=== PATIENT | female | born 1985 | race Caucasian/White ===

== ENCOUNTER 2018-01-03 12:03 | Day surgery (SDC) | payer BC ==
[2018-01-03 12:16] VITALS: BMI 34.3
[2018-01-03 12:41] LABS: #Eosinphils 0.1 thou/uL (0.0-0.7); #Lymphocytes 1.6 thou/uL (1.20-3.40); #Monocytes 0.7 thou/uL (0.11-0.59); #Neutrophils 9.1 thou/uL (1.40-6.50); %Basophils 0.2 % (0.0-1.0); %Eosinophils 1.1 % (0.0-10.0); %Lymphocytes 14.1 % (21.0-51.0); %Monocytes 5.8 % (0.0-10.0); %Neutrophils 78.8 % (42.0-75.0); Hemoglobin 12.8 g/dL (12.0-16.0); Mean Corpuscular HGB CONC 32.9 g/dL (32.0-36.0); Mean Corpuscular Hemoglobin 28.5 pg (27.0-31.0); Mean Corpuscular Volume 86.7 fl (81.0-99.0); Mean Platelet Volume 8.9 fL (7.4-10.4); Platelet Count 208 thou/uL (130-400); RBC Distribution Width 13.1 % (11.5-14.5); White Blood Cell (WBC) Count 11.6 thou/uL (4.8-10.8)
[2018-01-03 13:02] LABS: ALT (SGPT) 10 U/L (8-55); AST (SGOT) 16 U/L (5-34); Albumin 3.1 g/dL (3.5-5.0); Alkaline Phosphatase 271 U/L (40-150); Anion Gap 13 mmol/L (10-20); BUN (Urea Nitrogen) 8 mg/dL (7.0-18.7); Bilirubin, Total 0.2 mg/dL (0.2-1.2); Calc. Creatinine Clearance 159 mL/min (70-130); Calcium 9.3 mg/dL (7.8-10.44); Carbon Dioxide 23 mmol/L (22-29); Chloride 104 mmol/L (98-107); Estimated GFR-MDRD Greater than 90; Globulin 3.2 g/dL (2.4-3.5); Glucose 155 mg/dL (70-105); Potassium 3.9 mmol/L (3.5-5.1); Protein, Total 6.3 g/dL (6.0-8.3); Sodium 136 mmol/L (136-145)
== END 2018-01-03 13:49 ==
LOC: L&D/OP 12:03
PROVIDERS: ATTEND Student in an Organized Health Care Education/Training Program
DX: O13.9 Gestational [pregnancy-induced] hypertension without significant proteinuria, unspecified trimester (principal); O36.8190 Decreased fetal movements, unspecified trimester, not applicable or unspecified; O99.89 Other specified diseases and conditions complicating pregnancy, childbirth and the puerperium; R10.11 Right upper quadrant pain; Z3A.00 Weeks of gestation of pregnancy not specified
CPT/HCPCS: 36415; 80053; 85025; 99283

== ENCOUNTER 2018-01-13 08:35 | Inpatient (IN) | payer BC ==
[2018-01-13 20:34] VITALS: BMI 36.0
[2018-01-13] MEDS ORDERED: HYDROcodone/Acetaminophen 5/325 mg Tablet PO PRN (20:40)
[2018-01-13] MEDS ORDERED: Diphenoxylate HCl/Atropine Tablet PO PRN (20:40)
[2018-01-13] MEDS ORDERED: Ondansetron HCl/PF 4 MG/2 ML Vial IVP PRN (20:40)
[2018-01-13] MEDS ORDERED: Promethazine HCl 25 MG/ML VIAL IM PRN (20:40)
[2018-01-13] MEDS ORDERED: Lidocaine 1% (PF) 30 ML VIAL SC PRN (20:40)
[2018-01-13] MEDS ORDERED: LR / Pitocin 40 units/1000 ml 1,000 ML IV PRN (20:40)
[2018-01-13] MEDS ORDERED: Ibuprofen 800 MG TAB PO PRN (20:40)
[2018-01-13] MEDS ORDERED: Acetaminophen 500 MG TAB PO PRN (20:40)
[2018-01-13] MEDS ORDERED: Carboprost 250 MCG/ML AMP IM PRN (20:40)
[2018-01-13] MEDS ORDERED: Misoprostol 200 MCG TAB PR PRN (20:40)
[2018-01-13] MEDS: Lactated Ringer's 1,000 ML IV SCH (20:45)
[2018-01-13] MEDS ORDERED: LR 500 ML/Oxytocin 10 units 500 ML IV SCH (20:45)
[2018-01-13] MEDS: Misoprostol 100 MCG TAB VAG SCH (21:28)
[2018-01-13 21:38] LABS: Hemoglobin 12.7 g/dL (12.0-16.0); Mean Corpuscular HGB CONC 33.8 g/dL (32.0-36.0); Mean Corpuscular Hemoglobin 29.1 pg (27.0-31.0); Mean Corpuscular Volume 85.9 fl (81.0-99.0); Mean Platelet Volume 9.4 fL (7.4-10.4); Platelet Count 234 thou/uL (130-400); RBC Distribution Width 13.3 % (11.5-14.5); Red Blood Cell (RBC) Count 4.37 mill/uL (4.20-5.40); White Blood Cell (WBC) Count 11.4 thou/uL (4.8-10.8)
[2018-01-13 22:19] LABS: Syphilis Antibody Nonreactive (Nonreactive); Syphilis Antibody Index 0.05 S/CO (<1.00 Non-Reactive)
[2018-01-13 23:04] LABS: HBSAg Index 0.17 S/CO (0-0.99); Hep B Surf Ag Non-Reactive S/CO (NonReactive)
[2018-01-14] MEDS: Misoprostol 100 MCG TAB VAG SCH (00:43)
[2018-01-14] MEDS: Lactated Ringer's 1,000 ML IV SCH ×2 (07:30→17:30)
[2018-01-14] MEDS ORDERED: DISCONTINUE ALL PREVIOUS NARCOTICS FS SCH (08:30)
[2018-01-14] MEDS: Bupivacaine 0.5% 20 ML, Fentanyl 400 MCG in Sodium Chloride 0.9% 72 ML EPIDURAL SCH ×2 (09:25→16:05)
[2018-01-14] MEDS ORDERED: Ketorolac Tromethamine 30 MG/ML VIAL ONE ×2 (11:24→21:33)
[2018-01-14] MEDS ORDERED: Lidocaine 2% MPF 10 ML AMP (For Epidural Use) ONE (11:24)
[2018-01-14] MEDS ORDERED: Ondansetron HCl/PF 4 MG/2 ML Vial ONE ×2 (11:24→20:00)
[2018-01-14 12:52] LABS: ALT (SGPT) 11 U/L (8-55); AST (SGOT) 18 U/L (5-34); Alkaline Phosphatase 309 U/L (40-150); Anion Gap 12 mmol/L (10-20); BUN (Urea Nitrogen) 7 mg/dL (7.0-18.7); Bilirubin, Total 0.3 mg/dL (0.2-1.2); Calc. Creatinine Clearance 167 mL/min (70-130); Calcium 9.2 mg/dL (7.8-10.44); Carbon Dioxide 21 mmol/L (22-29); Chloride 107 mmol/L (98-107); Estimated GFR-MDRD Greater than 90; Globulin 2.9 g/dL (2.4-3.5); Glucose 100 mg/dL (70-105); Potassium 4.6 mmol/L (3.5-5.1); Protein, Total 5.9 g/dL (6.0-8.3); Sodium 135 mmol/L (136-145)
[2018-01-14] MEDS: Dextrose 5%-Lactated Ringers 1,000 ML IV SCH (13:00)
[2018-01-14] MEDS ORDERED: Acetaminophen 325 MG TAB PO PRN (13:17)
[2018-01-14] MEDS ORDERED: ePHEDrine/0.9% NaCl/PF SYRINGE 50 mg/10 ml SLOW IVP PRN (13:17)
[2018-01-14] MEDS ORDERED: Eucerin (Mineral Oil/Petrolatum,White) 30 gm Jar TOP PRN ×2 (13:17→20:39)
[2018-01-14] MEDS ORDERED: Promethazine HCl 25 MG/ML VIAL IM PRN ×2 (13:17→20:39)
[2018-01-14] MEDS ORDERED: Ondansetron HCl/PF 4 MG/2 ML Vial IVP PRN ×3 (13:17→20:39)
[2018-01-14] MEDS ORDERED: diphenhydrAMINE 50 MG/ML VIAL IVP PRN ×2 (13:17→20:39)
[2018-01-14] MEDS ORDERED: Naloxone HCl 0.4 mg/ml Vial IVP PRN ×4 (13:17→20:39)
[2018-01-14] MEDS ORDERED: Lactated Ringer's 500 ML IV PRN (13:17)
--- NOTE | 2018-01-14 13:17 | PDOC.LDHP ---
Labor and Delivery H&P Chief complaint: scheduled induction HPI: 32yo at 39wk for IOL due to GHTN. No PIH sx. Recieved 2 doses cytotec overnight, contraction pain 2/10 this am. Current gestational age (weeks): 39 Due date: 01/16/18 Dating criteria: last menstrual period Grav: 2 Para: 0 OB History Details: h/o invasive mole first s/p MTX chemotherapy Current complications: none Abnormal US findings: No Past Medical History: Invasive mole Current medications: pre- vitamins, other (gabapentin 300 tid prn) Previous surgical history: other (d&c) Allergies/Adverse Reactions: Allergies Allergy/AdvReac Type Severity Reaction Status Date / Time No Known Allergies Allergy Verified 01/13/18 20:25 Social history: none - Physical Exam Vital signs reviewed and normal: yes General: NAD Heart: RRR Lungs: CTAB Abdomen: gravid Extremeties: no edema FHT: category 2, late decelerations (occasional) [place] contractions every: q2-3min - Vaginal Exam cm dilated: 6 Effacement: 90% Station: -1 (LOT, FSE placed at 1220) - OB Labs Blood type: O RH: negative Antibody Screen: negative HIV: negative RPR: negative HEPSAg: negative 1 hour GCT: negative GBS: negative Rubella: immune - Assessment L&D Assessment: medically indicated induction - Plan Plan: admit to L&D, labor augmentation if indicated, informed consent obtained, anesthesia consult for pain management, other (resucitation prn late decel or minimal variability)
[2018-01-14] MEDS ORDERED: Communication Order-Pharmacy FS SCH ×2 (13:30→20:45)
[2018-01-14] MEDS ORDERED: Fentanyl 4mcg/Marcaine 0.1% Cassette 100 ML EPIDURAL SCH (13:30)
--- NOTE | 2018-01-14 17:12 | PDOC.LDPN ---
Labor & Delivery Progress Note - Subjective Subjective: vaginal pressure - Objective Vital signs reviewed and normal: yes General: NAD Uterine fundus: non tender Dilation: 9 Effacement: 90% Station: 1+ FHT: category 1 [place] contractions every: q2min - Assessment (1) Term Code(s): Z34.80 - ENCOUNTER FOR SUPRVSN OF NORMAL , UNSP TRIMESTER Current Visit: Yes Status: Acute -: Continue pitocin augmentation, recheck SVE in 1hr. Low grade temp, monitor for chorio. BP mild- severe, no sx PIH, nl labs. Labatelol prn severe pressures.
[2018-01-14] MEDS ORDERED: CEFAZOLIN/Water 2 GM/20 ML SYRINGE ONE (19:35)
[2018-01-14] MEDS ORDERED: Bicitra 30 ML UDCUP ONE (19:35)
[2018-01-14] MEDS ORDERED: Bicitra 30 ML UDCUP PO SCH (19:45)
[2018-01-14] MEDS ORDERED: CEFAZOLIN/Water 2 GM/20 ML SYRINGE SLOW IVP SCH (19:45)
--- NOTE | 2018-01-14 19:46 | PDOC.LDPN ---
Labor & Delivery Progress Note - Subjective Subjective: comfortable - Objective Vital signs reviewed and normal: yes General: NAD Uterine fundus: non tender SVE: 9 Effacement: 90% Station: 1+ FHT: category 1 [place] contractions every: q2min - Assessment (1) Term Code(s): Z34.80 - ENCOUNTER FOR SUPRVSN OF NORMAL , UNSP TRIMESTER Current Visit: Yes Status: Acute -: Arrested at 9cm since 1529, dispo for PCS due to arrest of active phase. Disc risks benefits including risk of bleeding transfusion infection damage to surrounding structures and trauma. Pt understands and wishes to proceed. All questions answered. status reassuring at this time.
[2018-01-14] MEDS ORDERED: PHENYLEPHRINE-NS 100 MCG/ML 10 ML SYRINGE ONE (20:00)
[2018-01-14] MEDS ORDERED: Oxytocin 10 UNITS/ML VIAL ONE (20:00)
[2018-01-14] MEDS ORDERED: Morphine PF 1 MG/ML SYR ONE (20:01)
[2018-01-14] MEDS ORDERED: Lidocaine 2% 10 ML INJ ONE (20:04)
--- NOTE | 2018-01-14 20:09 | PDOC.OPDEL ---
OB Operative/Delivery Note Delivery Dr/Surgeon: Yamile Assist: Andria Pre-Delivery Diagnosis: arrest of dilation ( at 9cm) Procedure/Post Delivery Dx: primary low transverse CS Weeks gestation: 39 Anesthesia: epidural - Additional Findings/Plan Placenta delivered: spontaneous findings: low transverse hysterotomy with extension (2cm on left side) , normal uterus, normal tubes, normal ovaries Estimated blood loss: 1000 Post delivery plan: routine recovery
[2018-01-14] MEDS ORDERED: Fentanyl 100 MCG/2 ML VIAL ONE (20:32)
[2018-01-14] MEDS ORDERED: Promethazine HCl 25 MG SUPP PR PRN (20:39)
[2018-01-14] MEDS ORDERED: Meperidine HCl/PF 25 MG/ML VIAL SLOW IVP PRN (20:39)
[2018-01-14] MEDS ORDERED: Ketorolac Tromethamine 30 MG/ML VIAL IVP PRN (20:39)
[2018-01-14] MEDS ORDERED: Naloxone HCl 0.4 mg/ml Vial IV PRN (20:39)
[2018-01-14] MEDS ORDERED: HYDROmorphone 2 MG/ML VIAL SLOW IVP PRN (20:39)
[2018-01-14] MEDS ORDERED: Acetaminophen 1,000 MG in Premix Bag 1 BAG IVPB PRN (20:41)
[2018-01-14] MEDS ORDERED: Ketorolac Tromethamine 30 MG/ML VIAL IVP SCH (20:45)
[2018-01-14] MEDS ORDERED: Labetalol HCl 100 MG/20 ML VIAL SLOW IVP PRN (22:35)
[2018-01-15] MEDS ORDERED: Lanolin Ointment 7 GM TUBE TOP PRN (00:37)
[2018-01-15] MEDS ORDERED: HYDROcodone/Acetaminophen 5/325 mg Tablet PO PRN ×2 (00:37)
[2018-01-15] MEDS ORDERED: diphenhydrAMINE 25 MG CAP PO PRN (00:37)
[2018-01-15] MEDS ORDERED: Acetaminophen 325 MG TAB PO PRN (00:37)
[2018-01-15] MEDS ORDERED: Zolpidem Tartrate 5 MG TAB PO PRN (00:37)
[2018-01-15] MEDS ORDERED: Bisacodyl 10 MG SUPP PR PRN (00:37)
[2018-01-15] MEDS ORDERED: Ondansetron HCl/PF 4 MG/2 ML Vial IVP PRN (00:37)
[2018-01-15] MEDS ORDERED: Ferrous Sulfate 325 MG TAB PO SCH (01:00)
[2018-01-15] MEDS ORDERED: Docusate Calcium (SURFAK) 240 MG CAP PO SCH (01:00)
[2018-01-15 05:20] LABS: Mean Corpuscular HGB CONC 33.3 g/dL (32.0-36.0); Mean Corpuscular Hemoglobin 29.1 pg (27.0-31.0); Mean Corpuscular Volume 87.4 fl (81.0-99.0); Platelet Count 236 thou/uL (130-400); RBC Distribution Width 13.4 % (11.5-14.5); Red Blood Cell (RBC) Count 3.78 mill/uL (4.20-5.40)
[2018-01-15] MEDS ORDERED: Sodium Chloride 0.9% 10 ML ONE (07:36)
[2018-01-15] MEDS: Prenatal Vitamin 1 TAB PO SCH (08:15)
[2018-01-15] MEDS: Docusate Calcium (SURFAK) 240 MG CAP PO SCH ×2 (08:15→21:52)
[2018-01-15] MEDS: Ferrous Sulfate 325 MG TAB PO SCH ×2 (08:17→22:02)
--- NOTE | 2018-01-15 08:32 | PDOC.PP ---
Post Progress Note Post Day #: 1 Subjective: Overall doing well. Pain moderately controlled. No ambulated yet. Davis in place. PO intake tolerated: yes Flatus: no Ambulation: no Vital Signs (12 hours) Temp Pulse Resp BP BP Pulse Ox 01/15/18 07:51 99.2 F 94 20 135/79 01/15/18 03:45 98.8 F 94 20 01/15/18 03:00 98.8 F 91 20 130/71 01/15/18 01:50 98.8 F 91 20 123/74 01/15/18 01:30 98.4 F 90 20 128/72 01/15/18 00:52 98.6 F 98 18 131/73 01/15/18 00:37 98.8 F 91 20 123/74 01/14/18 23:55 97.8 F 100 18 97 01/14/18 20:41 97.8 F 100 18 150/85 H Weight Weight 210 lb - Physical Examination General: NAD Cardiovascular: no m/r/g, RRR Respiratory: clear to auscultation bilaterally, non-labored breathing Abdominal: + bowel sounds, no distention, appropriately TTP Fundus firm & at: below umbilicus; dressing c/d/i Extremities: negative homans (B) Neurological: no gross focal deficits Psychiatric: A&Ox3, normal affect Result Diagrams: 01/15/18 01:13 01/14/18 12:17 Additional Labs: Post Labs Blood Type O NEGATIVE 01/13/18 20:45 Hep Bs Antigen Non-Reactive S/CO (NonReactive) 01/13/18 20:45 (1) delivery delivered Code(s): O82 - ENCOUNTER FOR DELIVERY WITHOUT INDICATION Status: Acute (2) Arrest of dilation, delivered, current hospitalization Code(s): O62.1 - SECONDARY UTERINE INERTIA Status: Acute - Assessment/Plan PPD 1 Ambulate and remove davis today PRN pain meds. Noted leukocytosis above expected, no signs of infection currently, afebrile. Will monitor. Continue routine post /op care.
[2018-01-15] MEDS: Misoprostol 100 MCG TAB VAG SCH ×3 (08:36→08:38)
[2018-01-15] MEDS: Lactated Ringer's 1,000 ML IV SCH (08:38)
[2018-01-15] MEDS: Dextrose 5%-Lactated Ringers 1,000 ML IV SCH (08:38)
[2018-01-15] MEDS: HYDROcodone/Acetaminophen 5/325 mg Tablet PO PRN ×3 (10:49→23:52)
[2018-01-15] MEDS: Simethicone Chewable 80 MG TAB PO PRN ×2 (10:50→21:52)
--- NOTE | 2018-01-15 12:56 | ADD-OP ---
ADDENDUM DATE OF SERVICE: 01/14/2018 I was present and scrubbed to assist the primary low transverse with Dr. Maia Ovalle. Please see her note for full details.
[2018-01-15] MEDS: Ibuprofen 800 MG TAB PO SCH ×2 (15:18→23:52)
[2018-01-16] MEDS: HYDROcodone/Acetaminophen 5/325 mg Tablet PO PRN ×4 (04:53→18:53)
[2018-01-16] MEDS: Prenatal Vitamin 1 TAB PO SCH (09:27)
[2018-01-16] MEDS: Docusate Calcium (SURFAK) 240 MG CAP PO SCH ×2 (09:27→21:34)
[2018-01-16] MEDS: Ferrous Sulfate 325 MG TAB PO SCH ×2 (09:31→21:37)
--- NOTE | 2018-01-16 12:50 | PDOC.PP ---
Post Progress Note Post Day #: 2 PO intake tolerated: yes Flatus: yes Ambulation: yes Vital Signs (12 hours) Temp Pulse Resp BP BP 01/16/18 12:28 98.7 F 94 18 125/72 01/16/18 08:25 98.6 F 100 20 01/16/18 07:59 98.6 F 100 20 127/79 01/16/18 04:00 97.8 F 95 16 Weight Weight 210 lb - Physical Examination General: NAD Cardiovascular: RRR Respiratory: non-labored breathing Abdominal: no distention, appropriately TTP Extremities: negative homans (B) Skin: CS incision dry & intact Neurological: no gross focal deficits Psychiatric: normal affect Result Diagrams: 01/15/18 01:13 01/14/18 12:17 Additional Labs: Post Labs Blood Type O NEGATIVE 01/13/18 20:45 Hep Bs Antigen Non-Reactive S/CO (NonReactive) 01/13/18 20:45 (1) Term Code(s): Z34.80 - ENCOUNTER FOR SUPRVSN OF NORMAL , UNSP TRIMESTER Status: Acute - Assessment/Plan POD2 from PCS for AOAP VSSAF Doing well, met all milestones GHTN BP nl no sx PIH Rh neg s/p rhogam, RImm Home tomorrow, cont current care.
[2018-01-16] MEDS: Ibuprofen 800 MG TAB PO SCH ×2 (13:36→21:34)
[2018-01-17] MEDS: Ibuprofen 800 MG TAB PO SCH (05:55)
--- NOTE | 2018-01-17 07:56 | PDOC.PP ---
Post Progress Note Post Day #: 3 PO intake tolerated: yes Flatus: yes Ambulation: yes Vital Signs (12 hours) Temp Pulse Resp BP 01/16/18 20:00 98.9 F 94 16 130/71 Weight Weight 210 lb - Physical Examination Cardiovascular: RRR Respiratory: non-labored breathing Abdominal: no distention, appropriately TTP Fundus firm & at: umb-2 Skin: CS incision dry & intact Neurological: no gross focal deficits Psychiatric: normal affect Result Diagrams: 01/15/18 01:13 01/14/18 12:17 Additional Labs: Post Labs Blood Type O NEGATIVE 01/13/18 20:45 Hep Bs Antigen Non-Reactive S/CO (NonReactive) 01/13/18 20:45 (1) Term Code(s): Z34.80 - ENCOUNTER FOR SUPRVSN OF NORMAL , UNSP TRIMESTER Status: Acute - Assessment/Plan POD3 from PCS for AOAP VSSAF Doing well met all milestones Hgb wnl postop, cont PNV on DC Pain controlled on [place] and Ibuprofen BP wnl no sx PIH Rh neg s/p RHIG, RImm DC home fu 2 wk
[2018-01-17 08:15] VITALS: BP 137/68; TEMP 98.2
[2018-01-17] MEDS: Docusate Calcium (SURFAK) 240 MG CAP PO SCH (09:06)
[2018-01-17] MEDS: Prenatal Vitamin 1 TAB PO SCH (09:06)
[2018-01-17] MEDS: Ferrous Sulfate 325 MG TAB PO SCH (09:07)
== END 2018-01-17 12:25 | disposition home or self-care (01) | DRG 766 ==
LOC: L&D 19:48 → 3SW 01-15 00:04
PROVIDERS: ADMIT Student in an Organized Health Care Education/Training Program; ATTEND Student in an Organized Health Care Education/Training Program
PROC: 3E0P7VZ Introduction of Hormone into Female Reproductive, Via Natural or Artificial Opening (ICD-10-PCS; 2018-01-13)
PROC: 3E033VJ Introduction of Other Hormone into Peripheral Vein, Percutaneous Approach (ICD-10-PCS; 2018-01-13)
PROC: 10D00Z1 Extraction of Products of Conception, Low, Open Approach (ICD-10-PCS; principal; 2018-01-14)
DX: O13.4 Gestational [pregnancy-induced] hypertension without significant proteinuria, complicating childbirth; Z37.0 Single live birth; O62.1 Secondary uterine inertia; Z3A.39 39 weeks gestation of pregnancy
CPT/HCPCS: 36415; 51702; 80053; 85027; 85461; 86780; 86850; 86870; 86900; 86901; 86922; 87340; 88307; 90384; 96372; A4216; J0131; J1885; J2001; J2274; J2405; J2590; J3010; J3490; J7050; J7120

== ENCOUNTER 2020-03-06 07:51 | Inpatient (IN) | payer BC ==
[2020-03-06] MEDS ORDERED: hydrALAZINE 20 MG/ML VIAL SLOW IVP PRN ×3 (08:10→10:51)
[2020-03-06 08:20] VITALS: BMI 34.1
--- NOTE | 2020-03-06 08:20 | PDOC.FPROB ---
FMR OB H&P: HPI - History of Present Illness Chief Complaint: Contractions Indentification: 35 year old at 38.4 wks History of Present Illness: 35 year old at 38.4 wks presents with moderately painful contractions since 6:00 AM. Patient states contractions are q5 min apart. She denies any vaginal bleeding, vaginal discharge, LoF. Endorses good movement. Primary Care Physician: Dr. Ovalle FMR OB H&P: Current - Care : 3 Para: 1011 Gestational age: 38.4 wks FMR OB H&P: History - Past Medical History PMH: Denies - OB History OB History: Hx D&C Hx complete molar and gestational trophoblastic disease C/S x1 for arrest of dilation Hx of gHTN in past on ASA - PRINTER MAINTAINER History PRINTER MAINTAINER History: Denies history of STD's - Surgical History Sx History: C/S x1 D&C - Social History Social History: Denies tobacco, alcohol, or drug use FMR OB H&P: Medications - Current Home Medications: Medication Instructions Recorded Confirmed Type Multivit-Min69/Iron/Folic Acid [OB 1 tablet PO DAILY 12/13/15 03/06/20 History Complete Caplet] HYDROcodone Bit/APAP 5/325 [[place]] 2 tab PO Q4H PRN #30 tab 01/17/18 03/06/20 Rx Ibuprofen [Motrin] 800 mg PO Q8HR #30 tab 01/17/18 03/06/20 Rx Aspirin 1 tab PO DAILY 03/06/20 03/06/20 History Pnv 102/Iron/Folate 1/Dss/Dha 1 tab PO DAILY 03/06/20 03/06/20 History [Vitafol Fe+ Docusate Combo Pck] Allergies/Adverse Reactions: Allergies Allergy/AdvReac Type Severity Reaction Status Date / Time No Known Allergies Allergy Verified 01/13/18 20:25 FMR OB H&P: ROS - Review of Systems General: denies: fever/chills, fatigue Eyes: denies: vision changes, scotomas ENT: reports: nasal congestion, rhinorrhea, sinus pain/pressure. denies: sore throat Cardiovascular: denies: chest pain, palpitation, edema Gastrointestinal: reports: abdominal pain. denies: nausea, vomiting, diarrhea Genitourinary (Female): reports: contractions. denies: dysuria, vaginal discharge, vaginal bleeding Musculoskeletal: denies: pain, stiffness Neurologic: denies: numbness, syncope Integumentary: denies: itching, rash, lesions Hematologic/Lymphatic: denies: prolonged or excessive bleeding Psychological: denies: depression, anxiety FMR OB H&P: Vital Signs - Maternal Vital signs: BP 139/87 Pulse 84 O2 sat 96% on RA Afebrile - Heart Tones Baseline: 145 Variability: moderate Acceleration: present Deceleration: absent Category: category 1 [place] contractions every: q3-5 min FMR OB H&P: Physical Exam - Physical Exam General: NAD, awake, alert and oriented HEENT: MMM, grossly normal vision, grossly normal hearing Heart: RRR, pulses present General: CTAB, no respiratory distress Abdomen: soft, gravid, non-tender Musculoskeletal: pulses present, FROM in all four extremities Neurological: no tremor, no focal deficit Skin: no rash, capillary refill <2 seconds Lymphatic: no unusual bruising or bleeding, no purpura Psychiatric: intact recent and remote memory, good judgement and insight, normal mood and affect - Pelvic Exam Cyr score: 2/50/-2 FMR OB H&P: A/P - Problem List (1) Previous section Current Visit: Yes Status: Acute Code(s): Z98.891 - HISTORY OF UTERINE SCAR FROM PREVIOUS SURGERY (2) Term Current Visit: No Status: Acute Code(s): Z34.80 - ENCOUNTER FOR SUPRVSN OF NORMAL , UNSP TRIMESTER Disposition: 35 year old at 38.4 wks TIUP - previous c/s, scheduled for 03/10 - SVE 2/50/-2, arline q3-5 min - Appears to be in early labor Hx gHTN in past - On ASA during current - BP on admission borderline at 139/81 Hx LTCS - For arrest of descent - Will plan for repeat C/S Dispo: Admit to L&D. Will proceed with repeat C/S. Discussion: Date/Time: 03/06/20 0811 This H&P was discussed with Dr. Ayers who agrees with the above documentation and plan. Signature: Minal Ryder, PGY-3
[2020-03-06] MEDS ORDERED: Promethazine HCl 25 MG/ML VIAL IM PRN ×3 (08:38→10:51)
[2020-03-06] MEDS ORDERED: Ondansetron PF 4 MG/2 ML Vial IVP PRN ×3 (08:38→10:51)
[2020-03-06] MEDS: Lactated Ringer's 1,000 ML IV SCH ×2 (08:39→21:21)
[2020-03-06] MEDS ORDERED: Bicitra 30 ML UDCUP PO SCH (08:45)
[2020-03-06] MEDS ORDERED: Lactated Ringer's 1,000 ML IV SCH (08:45)
[2020-03-06] MEDS ORDERED: CEFAZOLIN 2 GM in Premix Bag 1 BAG IVPB SCH (08:45)
[2020-03-06 09:12] LABS: Hemoglobin 13.2 g/dL (12.0-16.0); Mean Corpuscular HGB CONC 31.3 g/dL (32.0-36.0); Mean Corpuscular Hemoglobin 27.3 pg (27.0-31.0); Mean Corpuscular Volume 87.2 fL (78.0-98.0); Mean Platelet Volume 8.4 fL (7.4-10.4); Platelet Count 330 thou/uL (130-400); RBC Distribution Width 12.4 % (11.5-14.5); Red Blood Cell (RBC) Count 4.84 mill/uL (4.20-5.40); White Blood Cell (WBC) Count 11.9 thou/uL (4.8-10.8)
[2020-03-06] MEDS ORDERED: Bicitra 30 ML UDCUP ONE (09:12)
[2020-03-06] MEDS ORDERED: MORPHINE 5 MG/10 ML PF VIAL ONE (09:18)
[2020-03-06] MEDS ORDERED: Dexamethasone 4 mg/ml Vial ONE (09:19)
[2020-03-06] MEDS ORDERED: Oxytocin 10 UNITS/ML VIAL ONE ×2 (09:19)
[2020-03-06] MEDS ORDERED: PHENYLEPHRINE-NS 100 MCG/ML 10 ML SYRINGE ONE (09:19)
[2020-03-06] MEDS ORDERED: Ondansetron PF 4 MG/2 ML Vial ONE (09:19)
[2020-03-06] MEDS ORDERED: L&D-Morphine 4 MG/ML VIAL SLOW IVP PRN (09:41)
[2020-03-06] MEDS ORDERED: Naloxone HCl 0.4 mg/ml Vial IV PRN (09:41)
[2020-03-06] MEDS ORDERED: Naloxone HCl 0.4 mg/ml Vial IVP PRN ×2 (09:41)
[2020-03-06] MEDS ORDERED: Meperidine HCl/PF 25 MG/ML VIAL SLOW IVP PRN (09:41)
[2020-03-06] MEDS ORDERED: diphenhydrAMINE 50 MG/ML VIAL IVP PRN (09:41)
[2020-03-06] MEDS ORDERED: Ondansetron HCl/PF 4 MG/2 ML Vial IVP PRN (09:41)
[2020-03-06] MEDS ORDERED: HYDROmorphone 2 MG/ML VIAL SLOW IVP PRN (09:41)
[2020-03-06] MEDS ORDERED: Promethazine HCl 25 MG SUPP PR PRN (09:41)
[2020-03-06] MEDS ORDERED: Communication Order-Pharmacy FS SCH (09:45)
[2020-03-06 09:52] LABS: Syphilis Antibody Nonreactive (Nonreactive); Syphilis Antibody Index 0.05 S/CO (<1.00 Non-Reactive)
[2020-03-06 09:53] LABS: HBSAg Index 0.13 S/CO (0-0.99); Hep B Surf Ag Non-Reactive S/CO (NonReactive)
[2020-03-06] MEDS ORDERED: Ketorolac Tromethamine 30 MG/ML VIAL ONE (10:37)
[2020-03-06] MEDS ORDERED: Acetaminophen 325 MG TAB PO PRN (10:51)
[2020-03-06] MEDS ORDERED: Misoprostol 200 MCG TAB PR PRN (10:51)
[2020-03-06] MEDS ORDERED: Simethicone Chewable 80 MG TAB PO PRN (10:51)
[2020-03-06] MEDS ORDERED: Methylergonovine 0.2 MG TAB PO PRN (10:51)
[2020-03-06] MEDS ORDERED: diphenhydrAMINE 25 MG CAP PO PRN (10:51)
[2020-03-06] MEDS ORDERED: Methylergonovine 0.2 MG/ML VIAL IM PRN (10:51)
[2020-03-06] MEDS ORDERED: NS / Oxytocin 40 units/1000ml 1,000 ML ONE (10:56)
[2020-03-06] MEDS: NS / Oxytocin 40 units/1000ml 1,000 ML IV SCH ×2 (11:31→16:30)
[2020-03-06] MEDS: Ibuprofen 800 MG TAB PO SCH (14:09)
--- NOTE | 2020-03-06 15:00 | PDOC.OPDEL ---
OB Operative/Delivery Note Delivery Dr/Surgeon: Yamile Assist: Andria Pre-Delivery Diagnosis: active labor Procedure/Post Delivery Dx: repeat low transverse CS Weeks gestation: 38 Anesthesia: spinal - Findings A Sex: female - 1 min: 8 - 5 min: 9 - Additional Findings/Plan Placenta delivered: spontaneous findings: low transverse hysterotomy without extension, normal uterus, normal tubes, normal ovaries, other (omental adhesions to anterior abd wall, bladder densely adherent to lower uterine segment) Estimated blood loss: 500 Post delivery plan: routine recovery
[2020-03-06] MEDS: Docusate Calcium (SURFAK) 240 MG CAP PO SCH (21:21)
[2020-03-06] MEDS: Ferrous Sulfate 325 MG TAB PO SCH (21:22)
[2020-03-06] MEDS ORDERED: HYDROcodone/Acetaminophen 5/325 mg Tablet PO PRN ×2 (22:00)
--- NOTE | 2020-03-06 22:16 | OP ---
DATE OF PROCEDURE: 03/06/2020 PREOPERATIVE DIAGNOSES: 1. Intrauterine at 38 weeks and 4 days. 2. Spontaneous labor. 3. Prior section x1, declines trial of labor. POSTOPERATIVE DIAGNOSES: 1. Intrauterine at 38 weeks and 4 days. 2. Spontaneous labor. 3. Prior section x1, declines trial of labor. 4. Adhesive disease. PROCEDURE PERFORMED: A repeat low transverse section via Pfannenstiel skin incision. ANESTHESIA: Spinal. LOIN TRIMMER SURGEON: Meggan Ayers MD ESTIMATED BLOOD LOSS: 500 mL. COMPLICATIONS: None. DRAINS: Stevenson catheter. PATHOLOGY: None. FINDINGS: Female , cephalic presentation. Clear amniotic fluid. Apgars 8 and 9. Weight is pending. Hysterotomy without extension. Omental adhesions present to the anterior abdominal wall and densely adherent bladder to the lower uterine segment. Normal ovaries and tubes bilaterally. DESCRIPTION OF PROCEDURE: The patient was taken to the operating room, where spinal anesthesia was obtained without difficulty. The patient was prepped and draped in a sterile fashion in a dorsal supine position with leftward tilt. After ensuring adequacy of anesthesia, a Pfannenstiel skin incision was made with a knife and carried down to the underlying subcutaneous tissue with a knife. The fascia was nicked in the midline with a knife and carried laterally with the Crockett scissors. The superior aspect of the fascia was tented with 2 Ron's and dissected off the rectus bluntly and sharply with the Crockett. The inferior aspect of the fascia was tented with 2 Ron's and dissected off the rectus with the Crockett as well. The rectus was divided in the midline using the Crockett scissors. The peritoneum was bluntly entered into and the omental adhesions were present. These were taken down with cautery and at time it was noted that the bladder was adherent upon the lower uterine segment. This was sharply taken down with the Metzenbaum carefully avoiding injury to the bladder. The bladder flap was created and the bladder blade was placed. The lower uterine segment was incised in a transverse fashion and extended with a Wilde maneuver. The infant's head was brought to the hysterotomy and the infant was delivered atraumatically. Cord was clamped and the handed to awaiting Ted team. Cord blood was obtained and the placenta was allowed to spontaneously deliver. The uterus was exteriorized, cleared of all clots and debris and repaired with a #1 Monocryl in a running locking fashion. The denuded areas where the bladder was taken down were cauterized for hemostasis. An additional [id number] stitch was put on the left apex of the hysterotomy for hemostasis. The uterus was placed back into the abdomen and the pelvis was irrigated and suctioned. Hemostasis was noted to be excellent. The instruments were removed out of the abdomen and the rectus muscles were examined and noted to be hemostatic. The fascia was reapproximated with a 0 PDS x1 suture with excellent reapproximation. The subcutaneous tissue was irrigated and cauterized of any bleeders and reapproximated with a 2-0 plain gut in a running fashion. The skin was closed with 4-0 Monocryl in a subcuticular fashion. Dermabond was applied as well as a pressure dressing. The patient tolerated the procedure well. Sponge, lap, and needle counts were correct x2. The patient was taken to the recovery room in stable condition. The patient received Ancef 2 g prior to the procedure. Job ID: [id number]
[2020-03-06] MEDS ORDERED: Ketorolac Tromethamine 30 MG/ML VIAL IVP PRN (22:27)
[2020-03-07] MEDS: Lactated Ringer's 1,000 ML IV SCH ×3 (00:04→20:36)
[2020-03-07 06:00] LABS: Hemoglobin 11.5 g/dL (12.0-16.0); Mean Corpuscular HGB CONC 33.2 g/dL (32.0-36.0); Mean Corpuscular Hemoglobin 29.2 pg (27.0-31.0); Mean Platelet Volume 8.1 fL (7.4-10.4); Platelet Count 304 thou/uL (130-400); RBC Distribution Width 12.3 % (11.5-14.5); Red Blood Cell (RBC) Count 3.93 mill/uL (4.20-5.40); White Blood Cell (WBC) Count 14.7 thou/uL (4.8-10.8)
[2020-03-07] MEDS ORDERED: Ibuprofen 800 MG TAB PO SCH (06:00)
[2020-03-07] MEDS: Ibuprofen 800 MG TAB PO SCH ×3 (07:16→22:03)
--- NOTE | 2020-03-07 07:16 | PDOC.PP ---
Post Progress Note Post Day #: 1 Subjective: Doing well, no complaints this morning. PO intake tolerated: yes Ambulation: no Vital Signs (12 hours) Temp Pulse Resp BP Pulse Ox 03/07/20 05:00 97.9 F 75 18 107/63 03/07/20 00:05 98.6 F 70 18 115/63 03/06/20 19:45 97.8 F 67 18 117/62 95 Weight Weight 199 lb - Physical Examination General: NAD Respiratory: non-labored breathing Abdominal: lochia (normal), no distention, appropriately TTP Fundus firm & at: below umbilicus Skin: CS incision dry & intact Neurological: no gross focal deficits Psychiatric: A&Ox3, normal affect Result Diagrams: 03/07/20 05:34 Additional Labs: Post Labs Blood Type O NEGATIVE 03/06/20 09:02 Hep Bs Antigen Non-Reactive S/CO (NonReactive) 03/06/20 09:02 (1) delivery delivered Code(s): O82 - ENCOUNTER FOR DELIVERY WITHOUT INDICATION Status: Acute - Assessment/Plan Doing well. Continue routine postop day 1 orders. Encourage ambulation. Anticipate d/c tomorrow.
[2020-03-07] MEDS: Docusate Calcium (SURFAK) 240 MG CAP PO SCH ×2 (07:42→22:04)
[2020-03-07] MEDS: Prenatal Vitamin 1 TAB PO SCH (07:42)
[2020-03-07] MEDS ORDERED: Measles/Mumps/Rubella 10 MCG/0.5 ML VIAL SC ONE (10:51)
[2020-03-07] MEDS ORDERED: Adacel (T-DAP) 0.5 ML SYRINGE IM ONE (10:51)
[2020-03-07] MEDS ORDERED: Varicella virus, LIVE 0.5 ML VIAL SC ONE (10:51)
[2020-03-07] MEDS: Ferrous Sulfate 325 MG TAB PO SCH ×2 (13:35→13:36)
[2020-03-08] MEDS: Ibuprofen 800 MG TAB PO SCH (05:59)
[2020-03-08] MEDS: Ferrous Sulfate 325 MG TAB PO SCH (07:35)
[2020-03-08] MEDS: Docusate Calcium (SURFAK) 240 MG CAP PO SCH (08:08)
[2020-03-08] MEDS: Prenatal Vitamin 1 TAB PO SCH (08:08)
[2020-03-08 08:26] VITALS: BP 120/56; TEMP 97.9
[2020-03-08] MEDS: Lactated Ringer's 1,000 ML IV SCH (09:21)
== END 2020-03-08 11:42 | disposition home or self-care (01) | DRG 788 ==
LOC: L&D/OP 07:51 → L&D 10:00 → 3SW 13:17
PROVIDERS: ADMIT Student in an Organized Health Care Education/Training Program; ATTEND Student in an Organized Health Care Education/Training Program
PROC: 10D00Z1 Extraction of Products of Conception, Low, Open Approach (ICD-10-PCS; principal; 2020-03-06)
PROC: 3E0334Z Introduction of Serum, Toxoid and Vaccine into Peripheral Vein, Percutaneous Approach (ICD-10-PCS; 2020-03-06)
DX: O34.211 Maternal care for low transverse scar from previous cesarean delivery (principal); Z3A.38 38 weeks gestation of pregnancy; Z37.0 Single live birth; O13.4 Gestational [pregnancy-induced] hypertension without significant proteinuria, complicating childbirth; Z79.899 Other long term (current) drug therapy; Z79.82 Long term (current) use of aspirin
CPT/HCPCS: 36415; 51702; 85027; 85461; 86780; 86850; 86870; 86900; 86901; 87340; 90384; 96372; 99285; J0690; J1100; J1200; J1885; J2274; J2405; J2590